=== PATIENT | male | born 1940 | race Caucasian/White ===

== ENCOUNTER → 2018-04-01 | Outpatient (CLI) | payer OTHER ==
[2016-08-24 09:26] VITALS: BP 140/71
--- NOTE | 2018-04-01 15:37 | VAS ---
HISTORY: Leg pain Study: Bilateral lower extremity arterial pressure analysis Comparison: None Findings: Normal ABIs are observed. An RICARDO of 0.95 is observed on the right. RICARDO of 0.94 is observed on the l eft. IMPRESSION: Normal RICARDO. Reported By:
== END ==
LOC: RAD 14:07
PROVIDERS: ATTEND Obstetrics & Gynecology Obstetrics
DX: M79.604 Pain in right leg (principal); M79.605 Pain in left leg
CPT/HCPCS: 93923